=== PATIENT | female | born 1955 | race Caucasian/White ===

== ENCOUNTER 2017-09-24 06:49 | Emergency (ER) | payer OTHER ==
[~2017-09-24] VITALS: Ht 165.1 cm; Wt 68.0 kg
[~2017-09-24 06:49] MED LIST: AMARYL1 MG PO; AMARYL2 MG PO; ASA81BEC PO; ATORVASTATIN CA40 MG PO; BISACODYL SUPP10 MG RECTAL; CALCITRIOL0.5 MCG PO; CATAPRES0.2 MG PO; CLARITIN10 MG PO; CLONIDINE0.1 PO; CONSTULOSE10 GM/15 M PO; DUONEB 2.5-0.5 M3 ML INH; HEPARIN SO5000 UNIT/ IJ; KEPPRA250 MG PO; LASIX 40 MG TAB40 M2 PO; LASIX 80 MG TAB80 MG PO; LISINOPRIL20 MG PO; MECLIZINE HCL25 MG PO; MUCINEX D ER 61 EACH PO; NEPHRO-VITE TA0.8 MG PO; NORVASC10 MG PO; NORVASC2.5 MG PO; ONDANSETRON HCL4 M2 PO; PROTONIX 20 MG20 M1 PO; PROTONIX40 M1 PO; REGLAN 10 MG TA10 MG PO; RENVELA800 MG PO; XANAX 0.25 MG0.25 MG PO; ZESTRIL40 MG PO; ZOLOFT 50 MG TA50 M1 PO; ZOLOFT25 MG PO; [UNRECOGNIZED DRUG - OTHER] SQ
[2017-09-24 07:24] VITALS: BP 88/42
== END 2017-09-24 09:14 ==
LOC: ER 06:49
DX: I46.9 Cardiac arrest, cause unspecified (principal); I49.01 Ventricular fibrillation; J18.8 Other pneumonia, unspecified organism; I12.0 Hypertensive chronic kidney disease with stage 5 chronic kidney disease or end stage renal disease; E11.22 Type 2 diabetes mellitus with diabetic chronic kidney disease; K21.9 Gastro-esophageal reflux disease without esophagitis; E78.5 Hyperlipidemia, unspecified; N18.6 End stage renal disease; Z86.73 Personal history of transient ischemic attack (TIA), and cerebral infarction without residual deficits